=== PATIENT | male | born 1980 | race Caucasian/White ===

== ENCOUNTER 2021-11-29 00:33 | Inpatient (IN) | payer MEDICAID, OTHER ==
[~2021-11-29] VITALS: Ht 170.2 cm; Wt 63.6 kg
[2021-11-29] MEDS ORDERED: LORazepam 2 mg/ml vial IV ONE (00:40)
[2021-11-29] MEDS ORDERED: folic acid 1mg tablet PO ONE (00:40)
[2021-11-29] MEDS ORDERED: normal saline 1000ml 1,000 ML IV ONE (00:40)
[2021-11-29] MEDS ORDERED: thiamine 100mg tablet PO ONE (00:40)
[2021-11-29 02:06] LABS: ALANINE AMINOTRANSFERASE 113 U/L (12-78); ALBUMIN/GLOBULIN RATIO 1.5 (1.1-1.5); ALKALINE PHOSPHATASE 72 IU/L (46-116); ANION GAP 8 (8-16); ASPARTATE AMINO TRANSFERASE 135 U/L (10-37); BILIRUBIN,TOTAL 2.1 MG/DL (0.1-1.0); BLOOD UREA NITROGEN 10 MG/DL (7-18); BUN/CREATININE RATIO 13.3 (5.4-32.0); CALCIUM 8.4 MG/DL (8.5-10.1); CHLORIDE 100 MMOL/L (99-107); CREATININE 0.75 MG/DL (0.60-1.10); GLUCOSE 143 MG/DL (70-104); POTASSIUM 3.6 MMOL/L (3.5-5.1); SODIUM 137 MMOL/L (135-145); TOTAL CARBON DIOXIDE 28.9 MMOL/L (24-32); TOTAL PROTEIN 6.7 G/DL (6.4-8.2); eGFR > 90 ML/MIN
[2021-11-29 02:13] LABS: CREATINE KINASE 258 U/L (39-308); ETHANOL < 0.010 GM/DL (0.0-0.010); MAGNESIUM 1.2 MG/DL (1.5-2.4)
[2021-11-29] MEDS ORDERED: magnesium 2GM in 50ml NS 50 ML IV ONE (02:20)
[2021-11-29] MEDS ORDERED: ondansetron/PF 4mg/2ml inj IV PRN (03:10)
[2021-11-29] MEDS ORDERED: acetaminophen 325mg tablet PO PRN ×2 (03:10)
[2021-11-29] MEDS ORDERED: LORazepam 1 MG tablet PO PRN (03:10)
[2021-11-29] MEDS ORDERED: haloperidol 5mg tablet PO PRN (03:10)
[2021-11-29] MEDS ORDERED: haloperidol lactate 5mg/ml inj IM PRN (03:10)
[2021-11-29] MEDS ORDERED: potassium Cl 40MEQ/1/2NS 520ml 520 ML IV PRN (03:10)
[2021-11-29] MEDS ORDERED: magnesium Cl slow-release 64mg tablet PO PRN (03:10)
[2021-11-29] MEDS ORDERED: potassium Cl 20 mEq SR tablet PO PRN ×2 (03:10)
[2021-11-29] MEDS ORDERED: magnesium 4gm in 100ml NS 100 ML IV PRN (03:10)
[2021-11-29 03:51] LABS: URINE AMPHETAMINE SCREEN NEGATIVE (Neg); URINE BARBITUATE SCREEN NEGATIVE (Neg); URINE BENZODIAZEPINES SCREEN NEGATIVE (Neg); URINE CANNABINOID SCREEN POSITIVE (Neg); URINE COCAINE SCREEN NEGATIVE (Neg); URINE METHADONE SCREEN NEGATIVE (Neg); URINE OPIATE SCREEN NEGATIVE (Neg); URINE PHENCYCLIDINE SCREEN NEGATIVE (Neg)
[2021-11-29] MEDS ORDERED: NO HOME MEDS (04:54)
[2021-11-29 05:04] LABS: BASOPHILS % (AUTO) 0.3 % (0-1); EOSINOPHILS % (AUTO) 0.3 % (0-6); HEMATOCRIT 28.2 % (42.0-52.0); LYMPHOCYTES # (AUTO) 0.2 X10'3 (1.1-4.8); LYMPHOCYTES % (AUTO) 8.2 % (21-51); MEAN CORPUSCULAR HEMOGLOBIN 35.2 PG (27.0-31.0); MEAN CORPUSCULAR HGB CONC 35.4 g/dL (33.0-36.5); MEAN CORPUSCULAR VOLUME 99.5 FL (78-98); MEAN PLATELET VOLUME 8.4 FL (7.4-10.4); MONOCYTES # (AUTO) 0.2 X10'3 (0-0.9); MONOCYTES % (AUTO) 7.8 % (2-12); NEUTROPHILS % (AUTO) 83.4 % (42-75); RED BLOOD COUNT 2.83 X10'6 (4.70-6.10); RED CELL DISTRIBUTION WIDTH 13.2 % (11.5-14.5); WHITE BLOOD COUNT 2.4 X10'3 (4.5-11.0)
[2021-11-29 05:17] LABS: PLATELET COUNT 43 X10'3 (140-440)
[2021-11-29 05:54] LABS: PLATELET ESTIMATE DECREASED; TOTAL CELLS COUNTED 100
[2021-11-29 05:55] LABS: ANISOCYTOSIS FEW
--- NOTE | 2021-11-29 07:37 | NUR ---
Pt is shaking and has mild anxiety at this time. Pt states that he stopped drinking two weeks ago, Pt stated that he drinks a bottle of vodka a day.
[2021-11-29] MEDS ORDERED: multivitamins, therapeutics tablet PO SCH (08:00)
[2021-11-29] MEDS ORDERED: folic acid 1mg/0.2ml inj IV SCH (08:00)
[2021-11-29] MEDS ORDERED: K and/or MAG REPLACEMENT MC SCH (08:00)
[2021-11-29] MEDS ORDERED: heparin, porcine 5000 units/ml vial SQ SCH (08:00)
[2021-11-29] MEDS: LORazepam 2 mg/ml vial IV PRN ×2 (08:05→22:43)
[2021-11-29] MEDS: thiamine 100mg/ml 2ml inj. IV SCH ×3 (08:05→22:51)
[2021-11-29 12:56] LABS: % IRON SATURATION 100 % (11-46); IRON 218 UG/DL (53-167); TOTAL IRON BINDING CAPACITY 218 UG/DL (259-388)
[2021-11-29 13:07] LABS: HIV ANTIBODY 1&2 RAPID NON-REACTIVE (Neg)
[2021-11-29] MEDS: normal saline 1000ml 1,000 ML IV SCH ×2 (13:56→13:57)
--- NOTE | 2021-11-29 14:02 | NUR ---
Pt got out of bed without using the call kim even after being educated on using the call kim and pulled out his second IV. Pt is stable on his feet at this time. Pt was cleaned up and a new IV has been placed at this time. Pt was educated again about not getting out of bed without calling the nurse.
--- NOTE | 2021-11-29 14:33 | NUR ---
Mother is at the bedside at this time. Pt is calm and cooperative, VS are stable and no distress noted at this time
--- NOTE | 2021-11-29 15:54 | NUR ---
Pt VS are stable at this time, pt is sleeping and no distress noted.
[2021-11-29 20:22] VITALS: BP 163/107
[2021-11-29] MEDS ORDERED: temazepam 15mg capsule PO PRN (21:00)
--- NOTE | 2021-11-30 02:22 | NUR ---
PT PULLED OUT HIS IV, AND STATED THAT HE WANTED TO LEAVE THE HOSPITAL. PT. IS AAOX4, AND STATED THAT HE IS DONE BEING IN THE HOSPITAL AND FEELS BETTER. HE SAID THAT HE WOULD WALK HOME AFTE CALLING HIS MOTHER AND SHE WOULD NOT PICK HIM UP. PT IS HAS A SMALL AMOUNT OF TREMORS, BUT CAN AMBULATE INDEPENDANTLY. PT BECAME VIOLENT WITH THE DOCTOR AND PUSHED HIM INTO THE DOOR WHEN THE DOCTOR TOLD HIS MOTHER THAT HE SHOULD STAY IN THE HOSPITAL. PT SIGNED AMA FORM BEFORE LEAVING
[2021-12-01 18:57] LABS: HBSAG SCREEN Negative (Negative); HEP A AB, IGM Negative (Negative); HEPATITIS C ANTIBODY <0.1 s/co ratio (0.0-0.9)
== END 2021-11-30 02:31 | disposition left against medical advice (07) | DRG 204 ==
LOC: ER 00:33 → ED HOLD 03:15
PROVIDERS: ADMIT Internal Medicine; ATTEND Family Medicine
DX: R55 Syncope and collapse (principal); R56.9 Unspecified convulsions; E83.51 Hypocalcemia; F12.90 Cannabis use, unspecified, uncomplicated; D72.819 Decreased white blood cell count, unspecified; E83.42 Hypomagnesemia; F10.139 Alcohol abuse with withdrawal, unspecified; Z53.29 Procedure and treatment not carried out because of patient's decision for other reasons; R74.8 Abnormal levels of other serum enzymes; R79.89 Other specified abnormal findings of blood chemistry; Z71.51 Drug abuse counseling and surveillance of drug abuser; Z71.41 Alcohol abuse counseling and surveillance of alcoholic
CPT/HCPCS: 36415; 70450; 71045; 80053; 80305; 80320; 82550; 82728; 83540; 83550; 83735; 83880; 84146; 84443; 84484; 85007; 85025; 85610; 86703; 86705; 86706; 86709; 86803; 87340; 96361; 96365; 96375; 99285; G0378; J2060; J3411; J3475; J3490; J7030

== ENCOUNTER 2024-02-12 05:58 | Emergency (ER) | payer MEDICAID ==
[~2024-02-12] VITALS: Ht 177.8 cm; Wt 72.7 kg
[~2024-02-12 05:58] MED LIST: NO HOME MEDS
[2024-02-12] MEDS: ondansetron/PF 4mg/2ml inj IV ONE (06:20)
[2024-02-12] MEDS: normal saline 1000ml 1,000 ML IV ONE (06:20)
[2024-02-12 07:26] LABS: BASOPHILS % (AUTO) 0.8 % (0-1); EOSINOPHILS # (AUTO) 0.4 X10'3 (0-0.9); EOSINOPHILS % (AUTO) 7.1 % (0-6); HEMATOCRIT 44.3 % (42.0-52.0); HEMOGLOBIN 15.3 g/dl (14.0-17.9); LYMPHOCYTES # (AUTO) 2.8 X10'3 (1.1-4.8); LYMPHOCYTES % (AUTO) 49.7 % (21-51); MEAN CORPUSCULAR HEMOGLOBIN 33.7 PG (27.0-31.0); MEAN CORPUSCULAR HGB CONC 34.5 g/dL (33.0-36.5); MEAN CORPUSCULAR VOLUME 97.8 FL (78-98); MEAN PLATELET VOLUME 7.8 FL (7.4-10.4); MONOCYTES # (AUTO) 0.2 X10'3 (0-0.9); MONOCYTES % (AUTO) 4.3 % (2-12); NEUTROPHILS # (AUTO) 2.2 X10'3 (1.8-7.7); NEUTROPHILS % (AUTO) 38.1 % (42-75); PLATELET COUNT 193 X10'3 (140-440); RED BLOOD COUNT 4.53 X10'6 (4.70-6.10); RED CELL DISTRIBUTION WIDTH 13.3 % (11.5-14.5); WHITE BLOOD COUNT 5.7 X10'3 (4.5-11.0)
[2024-02-12 07:34] LABS: PROTHROMBIN TIME 10.9 SECONDS (9.0-12.0)
[2024-02-12 08:04] LABS: ALANINE AMINOTRANSFERASE 30 U/L (12-78); ALBUMIN 3.6 G/DL (3.4-5.0); ALBUMIN/GLOBULIN RATIO 1.4 (1.1-1.5); ALKALINE PHOSPHATASE 48 IU/L (46-116); ANION GAP 10 (8-16); ASPARTATE AMINO TRANSFERASE 36 U/L (10-37); BILIRUBIN,TOTAL 0.5 MG/DL (0.1-1.0); BLOOD UREA NITROGEN 10 MG/DL (7-18); BUN/CREATININE RATIO 17.5 (10.0-20.0); CALCIUM 7.4 MG/DL (8.5-10.1); CHLORIDE 114 MMOL/L (99-107); CREATININE 0.57 MG/DL (0.60-1.10); GLUCOSE 108 MG/DL (70-104); SODIUM 151 MMOL/L (135-145); TOTAL CARBON DIOXIDE 27.3 MMOL/L (24-32); TOTAL PROTEIN 6.2 G/DL (6.4-8.2); eCRCL 170 ML/MIN; eGFR > 90 ML/MIN
[2024-02-12 08:22] LABS: ETHANOL 476 MG/DL (<10)
[2024-02-12] MEDS: thiamine 100mg/ml 2ml inj. IV ONE (09:17)
[2024-02-12 12:18] LABS: BILIRUBIN,URINE NEGATIVE (Neg); CLARITY,URINE CLEAR (Clear); COLOR,URINE STRAW (Yellow); GLUCOSE, URINE NEGATIVE (Neg); KETONES,URINE NEGATIVE (Neg); LEUKOCYTE ESTERASE ,URINE NEGATIVE (Neg); NITRITES, URINE NEGATIVE (Neg); OCCULT BLOOD,URINE NEGATIVE (Neg); PROTEIN,URINE NEGATIVE (Neg); UROBILINOGEN,URINE 0.2 E.U/dL (0.2-1.0)
[2024-02-12 12:28] LABS: UA COLLECTION TYPE URINAL
[2024-02-12 12:32] LABS: URINE AMPHETAMINE SCREEN NEGATIVE (Neg); URINE BARBITUATE SCREEN NEGATIVE (Neg); URINE BENZODIAZEPINES SCREEN NEGATIVE (Neg); URINE CANNABINOID SCREEN POSITIVE (Neg); URINE COCAINE SCREEN NEGATIVE (Neg); URINE METHADONE SCREEN NEGATIVE (Neg); URINE OPIATE SCREEN NEGATIVE (Neg); URINE PHENCYCLIDINE SCREEN NEGATIVE (Neg)
[2024-02-12 14:12] VITALS: BP 122/67; PULSE 75; RESP 18; TEMP 95; O2SAT 98
== END 2024-02-12 14:14 | disposition home or self-care (01) ==
LOC: ER 05:58
DX: F10.129 Alcohol abuse with intoxication, unspecified (principal); F12.90 Cannabis use, unspecified, uncomplicated; Y90.8 Blood alcohol level of 240 mg/100 ml or more
CPT/HCPCS: 36415; 80053; 80305; 80320; 81003; 85025; 85610; 93005; 96374; 96375; 99285; J2405; J3411; J7030; A6590

== ENCOUNTER 2024-04-12 10:28 | Emergency (ER) | payer MEDICAID ==
[~2024-04-12] VITALS: Ht 170.2 cm; Wt 61.4 kg
[2024-04-12 10:35] VITALS: TEMP 98
[2024-04-12 12:15] VITALS: BP 134/75; PULSE 86; RESP 15; O2SAT 98
== END 2024-04-12 12:18 | disposition home or self-care (01) ==
LOC: ER 10:28
DX: S62.397A Other fracture of fifth metacarpal bone, left hand, initial encounter for closed fracture (principal); F10.10 Alcohol abuse, uncomplicated; F12.90 Cannabis use, unspecified, uncomplicated; Z60.2 Problems related to living alone; Z56.0 Unemployment, unspecified; Y90.9 Presence of alcohol in blood, level not specified; W22.01XA Walked into wall, initial encounter; Y93.89 Activity, other specified; Y92.89 Other specified places as the place of occurrence of the external cause; Y99.8 Other external cause status
CPT/HCPCS: 29125; 73130; 99283

== ENCOUNTER 2024-05-21 11:56 | Emergency (ER) | payer MEDICAID ==
[~2024-05-21] VITALS: Ht 170.2 cm; Wt 60.0 kg
[2024-05-21 12:02] VITALS: BP 170/112; PULSE 117; RESP 18; O2SAT 98
[2024-05-21 13:04] VITALS: TEMP 97.9
== END 2024-05-21 13:05 | disposition home or self-care (01) ==
LOC: ER 11:56
DX: S63.602A Unspecified sprain of left thumb, initial encounter (principal); F12.90 Cannabis use, unspecified, uncomplicated; F10.10 Alcohol abuse, uncomplicated; W19.XXXA Unspecified fall, initial encounter; Y93.89 Activity, other specified; Y92.89 Other specified places as the place of occurrence of the external cause; Y99.8 Other external cause status; Y90.9 Presence of alcohol in blood, level not specified
CPT/HCPCS: 73140; 99284